=== PATIENT | male | born 1965 | race Caucasian/White ===

== ENCOUNTER 2019-01-26 18:48 | Observation (INO) | payer SELFPAY ==
--- NOTE | 2019-01-26 19:17 | RAD ---
TWO VIEW CHEST: 01/26/19 INDICATIONS: Chest pain. Lungs are clear. Heart and mediastinum unremarkable. Vasculature normal. IMPRESSION: No acute finding. POS: OFF
[2019-01-26 20:28] LABS: #Basophils 0.1 thou/uL (0.0-0.2); #Eosinphils 0.1 thou/uL (0.0-0.7); #Lymphocytes 1.7 thou/uL (1.20-3.40); #Monocytes 0.8 thou/uL (0.11-0.59); #Neutrophils 3.7 thou/uL (1.40-6.50); %Basophils 0.8 % (0.0-1.0); %Lymphocytes 27.4 % (21.0-51.0); %Monocytes 12.7 % (0.0-10.0); Hemoglobin 15.1 g/dL (14.0-18.0); Mean Corpuscular HGB CONC 34.1 g/dL (32.0-36.0); Mean Corpuscular Hemoglobin 32.9 pg (27.0-31.0); Mean Corpuscular Volume 96.5 fL (78.0-98.0); Mean Platelet Volume 8.4 fL (7.4-10.4); Platelet Count 207 thou/uL (130-400); RBC Distribution Width 11.7 % (11.5-14.5); Red Blood Cell (RBC) Count 4.59 mill/uL (4.70-6.10); White Blood Cell (WBC) Count 6.3 thou/uL (4.8-10.8)
[2019-01-26 20:55] LABS: ALT (SGPT) 55 U/L (8-55); AST (SGOT) 88 U/L (5-34); Acetaminophen Less than 6.0 mcg/mL (10.0-30.0); Albumin 4.9 g/dL (3.5-5.0); Alcohol 380 mg/dL (Less than 10); Alkaline Phosphatase 85 U/L (40-150); Anion Gap 22 mmol/L (10-20); BUN (Urea Nitrogen) 9 mg/dL (8.4-25.7); Bilirubin, Total 1.1 mg/dL (0.2-1.2); CK (CPK) 820 U/L (30-200); Calc. Creatinine Clearance 0 mL/min (70-130); Calcium 9.5 mg/dL (7.8-10.44); Carbon Dioxide 23 mmol/L (22-29); Chloride 101 mmol/L (98-107); Estimated GFR-MDRD Greater than 90; Globulin 2.9 g/dL (2.4-3.5); Glucose 101 mg/dL (70-105); Protein, Total 7.8 g/dL (6.0-8.3); Salicylate Less than 8.0 mg/dL (15.0-30.0); Sodium 142 mmol/L (136-145)
[2019-01-26] MEDS ORDERED: Multivitamins, Adult 10 ML, Thiamine HCl 100 MG, Folic Acid 1 MG in Dextrose 5 %-0.45 %... IV SCH (23:30)
[2019-01-26] MEDS ORDERED: Ondansetron PF 4 MG/2 ML Vial IVP PRN (23:51)
[2019-01-26] MEDS ORDERED: Ondansetron ODT 4 MG TAB PO PRN (23:51)
[2019-01-27] MEDS ORDERED: Diazepam 5 MG TAB PO SCH ×2 (00:15→06:00)
--- NOTE | 2019-01-27 01:30 | HP ---
PRIMARY CARE DOCTOR: No PCP. CODE STATUS: Full code. TIME OF EVALUATION: 12 a.m. HISTORY OF PRESENT ILLNESS: This is a 53-year-old male patient with past medical history of alcohol abuse, the patient reported he has been sober for about four years, back for the past 6 months the patient has been abusing alcohol on a daily basis during these periods of time as per brother reported to the ER staff. The patient has been aggressive, threatening his parents telling them that he is going to kill them, also the is in plans to divorce him due to threatening's, the patient is denying these stories. During the examination, it looks like he is having confabulations and a few episodes of forgetfulness. The patient presented with very high alcohol level. His symptoms are not very evident, it looks like he has been using high level of alcohol. He has stated that he has come to the hospital because he needs some help at home. Symptoms by the time of my examination, they were mild, the patient is still tachycardic, high risk for developing DT in the next 24 to 48 hours. REVIEW OF SYSTEMS: CONSTITUTIONAL: No fever, chills, or generalized weakness. RESPIRATORY: No cough, sputum production, or shortness of breath. CARDIOVASCULAR: No chest pain or palpitation. GASTROINTESTINAL: No nausea, vomiting, diarrhea, or abdominal pain. HAND FILER BALANCE WHEEL: No dizziness, headache, or feeling lightheaded. GENITOURINARY: No burning on urination. EXTREMITIES: No leg swelling. PSYCHIATRIC: The patient has addictive behavior and seems to be having confabulation histories. All other systems were reviewed and negative except for the findings mentioned above. PAST MEDICAL HISTORY: Positive for alcoholism. PAST SURGICAL HISTORY: Negative. PSYCHIATRIC HISTORY: History of alcohol abuse. SOCIAL HISTORY: The patient drinks a bottle of vodka on a daily basis. No drugs. No smoking history. FAMILY HISTORY: The patient has a history of addiction in his family reportedly. KNOWN ALLERGIES: No known drug allergies. REPORTED MEDICATIONS: None. PHYSICAL EXAMINATION: VITAL SIGNS: On presentation, blood pressure was 140/95 with heart rate 155, respiratory rate was 18, temperature 98.6, oxygen saturation was 98%. GENERAL APPEARANCE: The patient is alert, oriented, talkative, not in acute distress. HEENT: Eyes normal conjunctivae. Moist oral mucosa. Anicteric. No JVD. RESPIRATORY: Bilateral air entry. No rales. No wheezes. Symmetric expansion. CARDIOVASCULAR: The patient is tachycardic. No murmurs. No gallop. No edema. ABDOMEN: Soft. Normal bowel sounds. The patient has hepatomegaly that is painless. MUSCULOSKELETAL: Baseline range of motion and strength. No tenderness. SKIN: Warm, intact. No pallor. No rash. No redness. Peripheral pulses are present. Capillary refill seems to be intact. NEUROLOGIC: No evidence of any new focal weakness. Baseline speech. Cranial nerves seems to be intact. PSYCHIATRIC: The patient seems to be occasionally having confabulations, seems to be forgetful, but seems to have still optimal judgment for simple questions. DIAGNOSTIC DATA: EKG was reviewed. The patient has sinus tachycardia at the rate of 150, NE 118, QRS 82, QT corrected 426. Chest x-ray, no acute findings. LABORATORY DATA: Reviewed. The patient has a white count 6.3, hemoglobin 15.1, MCV 96.5, platelet count 207. Chemistry; sodium 142, potassium 4.0, chloride 101, carbon dioxide 23, anion gap 22, BUN 9, creatinine 0.88, GFR greater than 90, glucose 101, calcium 9.5, total bilirubin 1.1. LFTs were negative. CK 820. Troponin was negative. TSH 1.1, salicylates less than 8, acetaminophen 6 and plasma alcohol 380. Urine drug screen is pending. ASSESSMENT AND PLAN: The patient will be placed in the hospital with the following medical problems: 1. Alcohol intoxication. The patient is at high risk for delirium tremens. The patient came in to us for help. He wants to be sober. He wants to receive help discharge, willing to go voluntarily to any program to recover his family. The patient is not suicidal, not homicidal on my examination. We will continue ALHAJI protocol, give Valium 5 mg q.8 hours p.r.n. prophylactically for DT. Most likely the patient will develop DT in the next 24 hours. Heart rate has been in the high already. It looks like the patient has used very high levels of alcohol. 2. Deep venous thrombosis prophylaxis. Job ID: [id number]
[2019-01-27] MEDS ORDERED: Diazepam 5 MG TAB ONE (03:16)
[2019-01-27 05:03] LABS: #Eosinphils 0.1 thou/uL (0.0-0.7); #Lymphocytes 0.8 thou/uL (1.20-3.40); #Monocytes 0.6 thou/uL (0.11-0.59); #Neutrophils 3.1 thou/uL (1.40-6.50); %Basophils 0.3 % (0.0-1.0); %Eosinophils 1.2 % (0.0-10.0); %Lymphocytes 17.6 % (21.0-51.0); %Monocytes 12.6 % (0.0-10.0); %Neutrophils 68.3 % (42.0-75.0); Hemoglobin 13.8 g/dL (14.0-18.0); Mean Corpuscular HGB CONC 33.3 g/dL (32.0-36.0); Mean Corpuscular Hemoglobin 31.9 pg (27.0-31.0); Mean Platelet Volume 8.5 fL (7.4-10.4); Platelet Count 134 thou/uL (130-400); RBC Distribution Width 11.6 % (11.5-14.5); Red Blood Cell (RBC) Count 4.33 mill/uL (4.70-6.10); White Blood Cell (WBC) Count 4.5 thou/uL (4.8-10.8)
[2019-01-27 05:14] LABS: Anion Gap 15 mmol/L (10-20); BUN (Urea Nitrogen) 6 mg/dL (8.4-25.7); Calc. Creatinine Clearance 0 mL/min (70-130); Calcium 8.4 mg/dL (7.8-10.44); Carbon Dioxide 23 mmol/L (22-29); Chloride 104 mmol/L (98-107); Estimated GFR-MDRD Greater than 90; Glucose 110 mg/dL (70-105); Potassium 3.7 mmol/L (3.5-5.1); Sodium 138 mmol/L (136-145)
[2019-01-27 06:23] LABS: Amphetamine Not Detected (NotDetected); Barbiturates Screen Not Detected (NotDetected); Benzodiazepine Screen Not Detected (NotDetected); Cocaine Metabolite Screen Not Detected (NotDetected); Medtox Control Line Valid? VALID (VALID); Medtox Reader # READER 4; Methadone Not Detected (NotDetected); Methamphetamine Not Detected (NotDetected); Opiate Screen Not Detected (NotDetected); Oxycodone Screen Not Detected (NotDetected); Phencyclidine (PCP) Not Detected (NotDetected); THC/Cannabinoid Screen Not Detected (NotDetected); Tricyclic Screen Not Detected (NotDetected)
[2019-01-27] MEDS ORDERED: Enoxaparin Sodium 40 MG/0.4 ML SYRINGE ONE (09:27)
[2019-01-27] MEDS ORDERED: Lorazepam 2 MG/ML VIAL ONE (09:27)
[2019-01-27] MEDS: Enoxaparin Sodium 40 MG/0.4 ML SYRINGE SC SCH (09:34)
[2019-01-27 13:18] VITALS: BMI 22.6
[2019-01-27] MEDS: Diazepam 5 MG TAB PO SCH ×2 (13:53→20:10)
--- NOTE | 2019-01-27 18:28 | PDOC.PN ---
- Subjective Encounter Start Date: 01/27/19 Encounter Start Time: 11:00 Pt seen for followup re: alcohol withdrawal. Feels better. Still shaky. - Objective Resuscitation Status - Order Detail: 01/26/19 23:51 Resuscitation Status Routine Resuscitation Status: FULL: Full Resuscitation Vital Signs & Weight: Vital Signs (12 hours) Temp Pulse Resp BP BP Pulse Ox 01/27/19 16:59 137/82 97 01/27/19 15:15 98.0 F 115 H 16 137/82 97 01/27/19 13:58 169/85 H 01/27/19 13:05 98.8 F 108 H 18 169/85 H 100 01/27/19 13:00 98.8 F 118 H 18 169/85 H 99 Weight Weight 153 lb 5 oz Result Diagrams: 01/27/19 04:44 01/27/19 04:44 Phys Exam - Physical Examination Constitutional: NAD HEENT: moist MMs Neck: supple Respiratory: clear to auscultation bilateral Cardiovascular: RRR Gastrointestinal: soft Neurological: moves all 4 limbs tremor Psychiatric: normal affect, A&O x 3 Dx/Plan (1) Alcohol withdrawal Code(s): F10.239 - ALCOHOL DEPENDENCE WITH WITHDRAWAL, UNSPECIFIED Status: Acute Comment: Pt is on ASE protocol with valium. Continue to monitor. Pt has been counseled re: alcohol cessation. (2) Homicidal ideation Code(s): R45.850 - HOMICIDAL IDEATIONS Status: Acute Comment: For [facility] eval when medically cleared - Plan * . Review of Systems - Review of Systems Cardiovascular: negative: chest pain, palpitations, orthopnea, paroxysmal nocturnal dyspnea, edema, light headedness Gastrointestinal: negative: Nausea, Vomiting, Abdominal Pain, Diarrhea, Constipation, Melena, Hematochezia - Medications/Allergies Allergies/Adverse Reactions: Allergies Allergy/AdvReac Type Severity Reaction Status Date / Time No Known Drug Allergies Allergy Verified 01/27/19 13:50 Medications: Current Medications Diazepam (Valium) 5 mg PO 0400,1200,2000 [facility] Last Admin: 01/27/19 13:53 Dose: 5 mg Enoxaparin Sodium (Lovenox) 40 mg SC 0900 [facility] Last Admin: 01/27/19 09:34 Dose: 40 mg Ondansetron HCl (Zofran Odt) 4 mg PO Q6H PRN PRN Reason: Nausea/Vomiting Ondansetron HCl (Zofran) 4 mg IVP Q6H PRN PRN Reason: Nausea/Vomiting
[2019-01-28] MEDS: Diazepam 5 MG TAB PO SCH ×2 (04:08→11:39)
[2019-01-28] MEDS: Enoxaparin Sodium 40 MG/0.4 ML SYRINGE SC SCH (07:50)
[2019-01-28 12:46] VITALS: BP 142/94; TEMP 98
--- NOTE | 2019-01-28 20:24 | DIS ---
DATE OF ADMISSION: 01/26/2019 DATE OF DISCHARGE: 01/28/2019 PRIMARY CARE PROVIDER: None. DISCHARGE DIAGNOSIS: Alcohol withdrawal. CONDITION OF PATIENT ON THE DAY OF DISCHARGE: Stable. I assessed Mr. Kennedy on the day of discharge. He denies any chest pain or shortness of breath. Vital signs are stable. S1 and S2 are heard, regular. Lungs are clear to auscultation bilaterally. DISCHARGE MEDICATIONS: Thiamine 100 mg daily. HOSPITAL COURSE: Mr. Kennedy is a pleasant 53-year-old gentleman, who was admitted to [facility] for acute alcohol intoxication. Please refer to Dr. Koch's history and physical note dated 01/27/2019, for further details. He was observed for alcohol withdrawal. He improved clinically. At the time of admission, there was some concern regarding homicidal or suicidal ideation. After medical clearance, Mr. Kennedy was evaluated by [facility] services. They have recommended discharge to home. Mr. Kennedy has been advised to stop alcohol use. DISCHARGE DESTINATION: Home. Job ID: [id number]
== END 2019-01-28 14:11 | disposition home or self-care (01) ==
LOC: ERS 18:48 → ERHOLD 22:47 → 2SW 01-27 13:24
PROVIDERS: ADMIT Hospitalist; ATTEND Hospitalist
DX: F10.239 Alcohol dependence with withdrawal, unspecified (principal); F10.229 Alcohol dependence with intoxication, unspecified; R45.850 Homicidal ideations; Y90.8 Blood alcohol level of 240 mg/100 ml or more
CPT/HCPCS: 36415; 36416; 71046; 80048; 80053; 80306; 80307; 82550; 84443; 84484; 85025; 93005; 96361; 96365; 96366; 96372; 96375; G0378; J1650; J2060; J3411; J7042

== ENCOUNTER 2025-08-09 12:59 | Emergency (ER) | payer SELFPAY ==
[2025-08-09 13:37] LABS: #Basophils 0.06 10x3/uL (0.0-0.2); #Eosinophils 0.05 10x3/uL (0.0-0.7); #Monocytes 0.79 10x3/uL (0.11-0.59); #Neutrophils 11.15 10x3/uL (1.40-6.50); %Basophils 0.4 % (0.0-1.0); %Eosinophils 0.4 % (0.0-10.0); %Lymphocytes 10.0 % (21.0-51.0); %Monocytes 5.9 % (0.0-10.0); %Neutrophils 83.0 % (42.0-75.0); Hematocrit 41.4 % (42.0-52.0); Hemoglobin 14.4 g/dL (14.0-18.0); Mean Corpuscular Hemoglobin 30.2 pg (27.0-31.0); Mean Corpuscular Volume 86.8 fL (78.0-98.0); Platelet Count 247 10x3/uL (130-400); Red Blood Cell (RBC) Count 4.77 mill/uL (4.70-6.10); White Blood Cell (WBC) Count 13.44 10x3/uL (4.8-10.8)
[2025-08-09 14:01] LABS: ALT (SGPT) 19 U/L (Less than 45); AST (SGOT) 30 U/L (11-34); Acetaminophen Less than 10 mcg/mL (Less than 10); Albumin 4.4 g/dL (3.1-4.5); Alkaline Phosphatase 70 U/L (40-110); Anion Gap 21 mmol/L (10-20); BUN (Urea Nitrogen) 14 mg/dL (8.4-25.7); Bilirubin, Total 0.7 mg/dL (0.3-1.2); Calc. Creatinine Clearance 0 mL/min (70-130); Calcium 9.0 mg/dL (7.8-10.44); Carbon Dioxide 19 mmol/L (22-29); Chloride 105 mmol/L (98-107); Globulin 2.6 g/dL (2.4-3.5); Glucose 79 mg/dL (70-105); Potassium 3.7 mmol/L (3.5-5.1); Salicylate Less than 8.0 mg/dL (Less than 8.0); Sodium 141 mmol/L (136-145)
[2025-08-09 14:03] LABS: Bacteria/HPF None Seen HPF (None Seen); CAUTI Indications for Culture Alt mental st,lethar; Glucose, Urine (Dipstick) Normal (Negative); Leukocyte Negative Leu/uL (Negative); Protein, Urine (Dipstick) Negative (Neg-Trace); RBC/HPF 0-3 HPF (0-3); Specific Gravity, Urine 1.010 (1.002-1.036); WBC/HPF 0-3 HPF (0-3)
[2025-08-09 14:08] LABS: Urine Culture Reflex No No
[2025-08-09 14:11] LABS: Cocaine Metabolite Screen Negative (Negative); THC/Cannabinoid Screen Negative (Negative); Tricyclic Screen Negative (Negative)
[2025-08-10] MEDS ORDERED: hydrALAZINE 10 MG TAB ONE (08:50)
== END 2025-08-10 19:19 ==
LOC: ERS 12:59
DX: R45.851 Suicidal ideations (principal); I10 Essential (primary) hypertension; E78.5 Hyperlipidemia, unspecified; F17.290 Nicotine dependence, other tobacco product, uncomplicated; F10.20 Alcohol dependence, uncomplicated; Z79.899 Other long term (current) drug therapy
CPT/HCPCS: 36415; 80053; 80306; 80307; 81001; 84439; 84443; 85025; 93005; J3411